=== PATIENT | female | born 1955 | race Two or more races ===

== ENCOUNTER 2024-12-22 09:02 | Emergency (ER) | payer OTHER, BC ==
[~2024-12-22] VITALS: Ht 165.1 cm; Wt 61.2 kg
[2024-12-22 10:31] LABS: HEMATOCRIT 40.4 % (36.0-45.00); HEMOGLOBIN 13.6 g/dL (12.0-15.00); MEAN CELL VOLUME 85.4 fL (80.00-100.00); MEAN CORPUSCULAR HEMOGLOBIN 28.8 pg (27.00-32.0); MEAN CORPUSCULAR HGB CONC 33.8 g/dl (32.0-36.0); PLATELET COUNT 262 K/uL (150-450); RED BLOOD COUNT 4.73 M/uL (4.00-6.00)
[2024-12-22 10:55] LABS: INR 1.02; PARTIAL THROMBOPLASTIN TIME 25.9 SECONDS (22.0-34.0); PROTHROMBIN TIME 11.1 SECONDS (9.0-11.5)
[2024-12-22 11:12] LABS: BILIRUBIN TOTAL 2.01 mg/dL (0.3-1.2); CALCIUM 9.9 mg/dL (8.5-10.1); CREATININE SERUM 0.87 mg/dL (0.55-1.02); GFR 64.75; GLOBULINA 3.4 G/DL (2.4-3.5); POTASSIUM 4.27 mEq/L (3.5-5.1); TOTAL PROTEIN 7.4 gm/dL (6.4-8.2)
[2024-12-22] MEDS ORDERED: KETOROLAC TROMETHAMINE 60 MG VIAL IM ONE (11:37)
[2024-12-22 11:59] LABS: PH,URINE 5.5 (5.0-8.0); URINE APPEARANCE Clear; URINE BILIRRUBIN Negative (NEGATIVE); URINE BLOOD Negative; URINE COLOR Yellow; URINE GLUCOSE Negative (NEGATIVE); URINE KETONE Trace (NEGATIVE); URINE LEUKOCYTE Negative; URINE NITRATE Negative; URINE PROTEIN Negative (NEGATIVE); URINE UROBILINOGEN 0.2 E.U./dl
[2024-12-22 12:03] LABS: URINE BACTERIA 1096.6 uL (0.0-1933); URINE EPITHELIAL CELLS 73.9 uL (0.0-38.8); URINE WBC 28.4 uL (0.0-23.2)
[2024-12-22 12:42] LABS: URINE CAST 1.32 uL (0.0-1.40)
[2024-12-22] MEDS ORDERED: PROBIOTIC1 EAC2 PO (15:15)
[2024-12-22] MEDS ORDERED: PEPCID AC20 MG PO (15:15)
[2024-12-22] MEDS ORDERED: MINERAL OIL 30 ML BLIST.PACK PO ONE (16:00)
[2024-12-22] MEDS ORDERED: LACTULOSE 10 G/15 ML ML PO ONE (16:00)
[2024-12-22] MEDS ORDERED: MAGNESIUM HYDROXIDE 400 MG/5 ML ML PO ONE (16:00)
[2024-12-22] MEDS ORDERED: MINERAL OIL 30 ML BLIST.PACK ONE (16:20)
[2024-12-22] MEDS ORDERED: LACTULOSE 20 G/30 ML BLIST.PACK ONE (16:20)
[2024-12-22] MEDS ORDERED: MAGNESIUM HYDROXIDE 30 ML BLIST.PACK PO ONE (16:20)
[2024-12-22] MEDS ORDERED: ACETAMINOPHEN 500 MG GEL..CAP PO ONE (16:34)
== END 2024-12-22 16:37 | disposition home or self-care (01) ==
LOC: ER 09:04
PROVIDERS: General Practice
DX: K59.00 Constipation, unspecified (principal); K57.30 Diverticulosis of large intestine without perforation or abscess without bleeding; Z88.0 Allergy status to penicillin
CPT/HCPCS: 36415; 74177; 96372; 99284; J1885; Q9965